=== PATIENT | female | born 1960 | race Two or more races ===

== ENCOUNTER 2024-04-20 08:11 | Inpatient (IN) | payer OTHER, MEDICAID ==
[~2024-04-20] VITALS: Ht 170.2 cm; Wt 72.9 kg
[2024-04-20 08:58] LABS: Basophils # (auto) 0 10 ^3/uL (0-0.2); Chloride 104 mmol/L (98-107); Eosinophils # (auto) 0 10 ^3/uL (0-0.8); Eosinophils % (auto) 0.1 % (0.0-7.0); Hemoglobin 20.1 g/dL (12.2-16.2); Lymphocytes # (auto) 1.8 10 ^3/uL (0.4-5.4); Potassium 3.6 mmol/L (3.5-5.1); Sodium 135 mmol/L (136-145)
[2024-04-20 08:59] LABS: Anion Gap 6 (5-15); Calcium 9.4 mg/dL (8.7-10.4); Carbon Dioxide 25 mmol/L (20-31)
[2024-04-20 09:00] LABS: Basophils % (auto) 0.5 % (0.0-2.0); Lymphocytes % (auto) 20.9 % (10.0-50.0); Mean Corpuscular Hemoglobin 31.2 pg (28.0-32.0); Mean Corpuscular Hgb Conc. 34.4 g/dL (32.0-36.0); Mean Corpuscular Volume 90.6 fL (80.0-100.0); Monocytes % (auto) 11.3 % (0.0-12.0); Neutrophils # (auto) 5.8 10 ^3/uL (1.6-8.6); Neutrophils % (auto) 67.2 % (37.0-80.0); Nucleated Red Blood Cells % 0.4 %; Platelet Count (auto) 306 10^3/uL (140-450); Red Blood Cells 6.44 10^6/uL (4.0-5.20); Red Cell Distribution Width 14.4 % (11.8-14.3); White Blood Cell 8.6 10^3/uL (4.4-10.8)
[2024-04-20 09:03] LABS: Hematocrit 58.3 % (36.0-46.0)
[2024-04-20 09:04] LABS: BUN/Creatinine Ratio 16.3 (10.0-20.0); Blood Urea Nitrogen 16 mg/dL (9-23); Glucose 128 mg/dL (74-106)
[2024-04-20 10:13] LABS: Urine Bacteria None Seen /hpf (None Seen)
[2024-04-20 10:32] LABS: Urine Blood Negative /uL (Negative); Urine Clarity Turbid (Clear); Urine Color Yellow (Yellow); Urine Hyaline Cast MANY /lpf (0 - 2); Urine Mucus FEW (None Seen); Urine Protein, UAD 1+ (Negative); Urine Specific Gravity 1.023 (1.001-1.035); Urine Urobilinogen Normal (Negative); Urine WBC 223 /hpf (0 - 5); Urine pH 5.5 (5.0-9.0)
--- NOTE | 2024-04-20 10:34 | ED.PDOC ---
History of Present Illness HPI Comments 63 y/o F, with a Hx of marijuana use, is BIBA for c/o abdominal pain, nausea, vomiting, and blood-streaked stools, today. Patient endorses on having pain, nausea, and vomiting symptoms for the past 6 days that were unprovoked and gradual, with additional onset of "dark-bloody" stools, today, that she noticed. Patient comments on recovering from a recent cold in addition to having no significant Hx aside from FMHx of CA. Patient denies having any weakness, diarrhea, constipation, hematemesis, or other associated symptoms or modifiers at this time. 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 Family History Family History: Family hx of Cancer Social History Smoker: Non-Smoker Alcohol: Denies ETOH Use Drugs: Marijuana Lives In: Home Constitutional: denies: chills, diaphoresis, fatigue, fever, malaise, sweats, weakness, others EENTM: denies: blurred vision, double vision, ear bleeding, ear discharge, ear drainage, ear pain, ear ringing, eye pain, eye redness, hearing loss, mouth pain, mouth swelling, nasal discharge, nose bleeding, nose congestion, nose pain, photophobia, tearing, throat pain, throat swelling, voice changes, others Respiratory: denies: cough, hemoptysis, orthopnea, SOB at rest, shortness of breath, SOB with excertion, stridor, wheezing, others Cardiovascular: denies: chest pain, dizzy spells, diaphoresis, Dyspnea on exertion, edema, irregular heart beat, left arm pain, lightheadedness, palpitations, PND, syncope, others Gastrointestinal: reports: abdominal pain, blood streaked bowels, nausea, vomiting; denies: abdomen distended, constipated, diarrhea, dysphagia, difficulty swallowing, hematemesis, melena, poor appetite, poor fluid intake, rectal bleeding, rectal pain, others Genitourinary: denies: abnormal vagina bleeding, burning, dyspareunia, dysuria, flank pain, frequency, hematuria, incontinence, pain, , vagina discharge, urgency, others Neurological: denies: dizziness, fainting, headache, left sided numbness, left sided weakness, numbness, paresthesia, pre-existing deficit, right sided numbness, right sided weakness, seizure, speech problems, tingling, tremors, weakness, others Musculoskeletal: denies: back pain, gout, joint pain, joint swelling, muscle pain, muscle stiffness, neck pain, others Integumetry: denies: bruises, change in color, change in hair/nails, dryness, laceration, lesions, lumps, rash, wounds, others Allergic/Immunocompromised: denies: Difficulty Healing, Frequent Infections, Hives, Itching, others Hematologic/Lymphatic: denies: anemia, blood clots, easy bleeding, easy bruising, swollen glands, others Endocrine: denies: excessive hunger, excessive sweating, excessive thirst, excessive urination, flushing, intolerance to cold, intolerance to heat, unexplained weight gain, unexplained weight loss, others Psychiatric: denies: anxiety, bipolar disorder, depression, hopeless, panic disorder, schizophrenia, sleepless, suicidal, others All Other Systems: Reviewed and Negative Physical Exam General Appearance: Moderate Distress HEENT: Normal ENT Inspection, Pharynx Normal, TMs Normal Neck: Full Range of Motion, Non-Tender, Normal, Normal Inspection Respiratory: Chest Non-Tender, Lungs Clear, No Accessory Muscle Use, No Respiratory Distress, Normal Breath Sounds Cardiovascular: No Edema, No JVD, No Murmur, No Gallop, Normal Peripheral Pulses, Regular Rate/Rhythm Breast Exam: Deferred Gastrointestinal: Soft Genitalia: Deferred Pelvic: Deferred Rectal: Deferred Extremities: No calf tenderness, Normal capillary refill, Normal inspection, Normal range of motion, Non-tender, No pedal edema Musculoskeletal : Apperance: Normal Neurologic: Alert, 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 Was a procedure done?: No Differential Dx Considerations may include: gastritis, gastroenteritis, appendicitis, diverticulitis, cholecystitis, cholelithiasis, nephrolithiasis, PUD, spoiled food, UTI, acute abdomen X-Ray, Labs, Meds, VS Vital Signs Date Time Temp Pulse Resp B/P (MAP) Pulse Ox O2 Delivery O2 Flow Rate FiO2 04/20/24 11:07 102 16 159/105 04/20/24 10:51 102 17 159/102 (121) 97 04/20/24 08:47 98.0 103 15 142/97 (112) 97 98.0 04/20/24 08:47 15 97 Room Air 04/20/24 08:14 98.4 95 18 173/113 (133) 97 Lab Test 04/20/24 08:38 04/20/24 08:20 Range/Units White Blood Count 8.6 4.4-10.8 10^3/uL Red Blood Count 6.44 H 4.0-5.20 10^6/uL Hemoglobin 20.1 H 12.2-16.2 g/dL Hematocrit 58.3 H 36.0-46.0 % Mean Corpuscular Volume 90.6 80.0-100.0 fL Mean Corpuscular Hemoglobin 31.2 28.0-32.0 pg Mean Corpuscular Hemoglobin Concent 34.4 32.0-36.0 g/dL Red Cell Distribution Width 14.4 H 11.8-14.3 % Platelet Count 306 140-450 10^3/uL Mean Platelet Volume 8.6 6.9-10.8 fL Neutrophils (%) (Auto) 67.2 37.0-80.0 % Lymphocytes (%) (Auto) 20.9 10.0-50.0 % Monocytes (%) (Auto) 11.3 0.0-12.0 % Eosinophils (%) (Auto) 0.1 0.0-7.0 % Basophils (%) (Auto) 0.5 0.0-2.0 % Neutrophils # (Auto) 5.8 1.6-8.6 10 ^3/uL Lymphocytes # (Auto) 1.8 0.4-5.4 10 ^3/uL Monocytes # (Auto) 1.0 0-1.3 10 ^3/uL Eosinophils # (Auto) 0 0-0.8 10 ^3/uL Basophils # (Auto) 0 0-0.2 10 ^3/uL Nucleated Red Blood Cells 0.4 % Sodium Level 135 L 136-145 mmol/L Potassium Level 3.6 3.5-5.1 mmol/L Chloride Level 104 98-107 mmol/L Carbon Dioxide Level 25 20-31 mmol/L Anion Gap 6 5-15 Blood Urea Nitrogen 16 9-23 mg/dL Creatinine 0.98 0.550-1.02 mg/dL Glomerular Filtration Rate Calc 64 >90 mL/min BUN/Creatinine Ratio 16.3 10.0-20.0 Serum Glucose 128 H 74-106 mg/dL Calcium Level 9.4 8.7-10.4 mg/dL Urine Color Yellow Yellow Urine Clarity Turbid H Clear Urine pH 5.5 5.0-9.0 Urine Specific [place] 1.023 1.001-1.035 Urine Protein 1+ H Negative Urine Ketones Negative Negative Urine Blood Negative Negative /uL Urine Nitrite Negative Negative Urine Bilirubin Negative Negative Urine Urobilinogen Normal Negative mg/dL Urine Leukocyte Esterase 3+ Negative /uL Urine RBC 13 0 - 4 /hpf Urine WBC 223 0 - 5 /hpf Urine Squamous Epithelial Cells Few <5 /hpf Urine Bacteria None seen None Seen /hpf Urine Hyaline Casts Many 0 - 2 /lpf Urine Mucus Few None Seen Urine Glucose Normal Normal mg/dL Current Medications Medications (Trade) Dose Ordered Sig/Dheeraj Route Start Time Stop Time Status Last Admin Ondansetron HCl (Zofran) 4 mg ONCE ONCE IV 04/20/24 10:30 04/20/24 10:31 DC 04/20/24 11:07 Sodium Chloride 1,000 ml @ 1,000 mls/hr Q1H ONCE IVB 04/20/24 10:30 04/20/24 11:29 DC 04/20/24 10:58 Morphine Sulfate 4 mg ONCE ONCE IV 04/20/24 10:30 04/20/24 10:31 DC 04/20/24 11:07 Ceftriaxone Sodium 50 ml @ 100 mls/hr ONCE ONCE IV 04/20/24 11:15 04/20/24 11:44 DC 04/20/24 11:[address] [address] Ph: [phone] DIAGNOSTIC IMAGING Diagnostic Imaging Report : [id number] Signed PATIENT: ALLIE TAVERAS ACCT: [id number] UNIT: [id number] : 1960 LOC: ER ROOM / BED: / AGE / SEX: 63 / F ADM STATUS: REG ER SERVICE 1029 ORDERING PHYSICIAN: RAYMOND PERRY MD PROCEDURE(s): ABPL - CT AB PEL WO CON-NO ORAL OR IV REASON: colitis ORDER NUMBER(s): [id number], ACCESSION NUMBER(s): [id number] Exam: CT CT AB PEL WO CON-NO ORAL OR IV History: colitis Comparison Study: None Technique: Multidetector spiral CT of the abdomen and pelvis was performed from lung bases to pubic symphysis. Imaging was performed without IV contrast. Axial, coronal and sagittal multiplanar reformats were obtained from the axial data set by the technologist. Radiation dose : Abdomen/Pelvis: CTDIvol 7 mGy, DLP 382 mGy*cm. Findings: Evaluation of solid organs is limited due to lack of intravenous contrast use. Lung Bases: There is mild ground-glass opacity and nodularity in the left lung base. Liver: The liver is normal in size. No focal lesions. Gallbladder and biliary Tree: Cholelithiasis noted without secondary findings of cholecystitis or biliary obstruction. Spleen: Unremarkable Pancreas: The pancreas is grossly normal in appearance. Adrenal Glands: Unremarkable Kidneys: Left renal cyst. No hydronephrosis or nephrolithiasis. Bladder: Grossly unremarkable for degree of distention. Bowel: The stomach is grossly normal in appearance. Small bowel and colon are normal in caliber and distribution. Normal appendix is visualized in the right lower quadrant without findings of appendicitis. Ascites: Absent Lymphadenopathy: No mesenteric, retroperitoneal or periportal lymphadenopathy. Abdominal wall and Mesentery: Unremarkable. Vasculature: The visualized abdominal aorta is normal in size and caliber. There is atherosclerotic calcification of the aorta and its branches. Evaluation of abdominal and pelvic vessels is limited due to lack of intravenous contrast. Pelvic Organs: Unremarkable Musculoskeletal: No aggressive focal bony lesions, acute fractures or dislocation. IMPRESSION: 1. No acute abdominal or pelvic findings. Cholelithiasis. Left renal cyst. Ground-glass and nodular opacities in the left lung base could be infectious / inflammatory. Recommend dedicated chest CT. Radiation optimization: All CT scans at this facility use at least one of these dose optimization techniques: Automated exposure control mA and/or kV adjustment per patient size (includes targeted exams where dose is matched to clinical indication) or iterative reconstruction. HS:Y ATED BY: CLYDE TORO MD DICTATED DATE/TIME: 04/20/24 1059 SIGNED BY: CLYDE TORO MD SIGNED DATE/TIME: 04/20/24 1059 CC: Patient alert. Complaining of abdominal pain. Does use marijuana. Vitals stable. Blood sugar slightly elevated. Urinalysis shows severe infection. Hemoglobin elevated. Hemo concentration. Dehydration. She continues to have abdominal pain. Establish intravenous access. Was given fluids pain CT scan of the abdomen reviewed does show gallstones along with pneumonia in the lower cuts of the lung. Was given Rocephin. Was given azithromycin. Reviewed her history. Explained to the patient. Continue cardiac monitoring. Time of 1ST Reevaluation: 08:30 Reevaluation 1ST: Unchanged Patient Education/Counseling: Diagnosis, Treatment Family Education/Counseling: No Family Present Departure 1 Departure Time of Disposition: 11:07 Impression: Primary Impression: Sepsis due to urinary tract infection Additional Impressions: Dehydration Diabetes mellitus, new onset Gallstones Pneumonia Qualified Codes: J18.9 - Pneumonia, unspecified organism Disposition: ADMITTED INPATIENT Admit to: Med Surg Condition: Guarded Critical Care Note Critical Care Time?: Yes (45 min-critical care time only) Stability Stability form required: No Heart Score Heart Score: Heart Score Response (Comments) Value History N/A 0 EKG N/A 0 Age N/A 0 Risk Factors N/A 0 Troponin N/A 0 Total 0 I personally scribed for RAYMOND PERRY MD ([email or web address]) on 04/20/24 at 10:34. Electronically submitted by Armand Burns ([email or web address]). I personally scribed for RAYMOND PERRY MD ([email or web address]) on 04/20/24 at 11:54. Electronically submitted by Armand Burns ([email or web address]). RAYMOND PERRY MD Apr 20, 2024 10:34
[2024-04-20] MEDS: SODIUM CHLORIDE 0.9% 1,000 ML IV ONE (10:53)
[2024-04-20] MEDS: SODIUM CHLORIDE 0.9% 1,000 ML IVB ONE (10:58)
--- NOTE | 2024-04-20 11:01 | DVH ---
Exam: CT CT AB PEL WO CON-NO ORAL OR IV History: colitis Comparison Study: None Technique: Multidetector spiral CT of the abdomen and pelvis was performed from lung bases to pubic symphysis. Imaging was performed without IV contrast. Axial, coronal and sagittal multiplanar reform ats were obtained from the axial data set by the technologist. Radiation dose : Abdomen/Pelvis: CTDIvol 7 mGy, DLP 382 mGy*cm. Findings: Evaluation of solid organs is limited due to lack of intravenous contrast use. Lung Bases: There is mild ground-glass opacity and nodularity in the left lung base. Liver: The liver is normal in size. No focal lesions. Gallbladder and biliary Tree: Cholelithiasis noted without secondary findings of cholecystitis or marcial iary obstruction. Spleen: Unremarkable Pancreas: The pancreas is grossly normal in appearance. Adrenal Glands: Unremarkable Kidneys: Left renal cyst. No hydronephrosis or nephrolithiasis. Bladder: Grossly unremarkable for degree of distention. Bowel: The stomach is grossly normal in appearance. Small bowel and colon are normal in caliber and d istribution. Normal appendix is visualized in the right lower quadrant without findings of appendici tis. Ascites: Absent Lymphadenopathy: No mesenteric, retroperitoneal or periportal lymphadenopathy. Abdominal wall and Mesentery: Unremarkable. Vasculature: The visualized abdominal aorta is normal in size and caliber. There is atherosclerotic calcification of the aorta and its branches. Evaluation of abdominal and pelvic vessels is limited d ue to lack of intravenous contrast. Pelvic Organs: Unremarkable Musculoskeletal: No aggressive focal bony lesions, acute fractures or dislocation. IMPRESSION: 1. No acute abdominal or pelvic findings. Cholelithiasis. Left renal cyst. Ground-glass and nodular opacities in the left lung base could be infectious / inflammatory. Recommend dedicated chest CT. Radiation optimization: All CT scans at this facility use at least one of these dose optimization eliz hniques: Automated exposure control mA and/or kV adjustment per patient size (includes targeted exams where dose is matched to clinical indication) or iterative reconstruction. HS:Y
[2024-04-20] MEDS: ONDANSETRON HCL 4 MG/2 ML VIAL IV ONE (11:07)
[2024-04-20] MEDS: MORPHINE SULFATE 4 MG/ML SYR/VIAL IV ONE (11:07)
[2024-04-20] MEDS: cefTRIAXone 1GM/50ML D5W 50 ML IV ONE (11:16)
[2024-04-20] MEDS: AZITHROMYCIN 500MG/ 250ML 250 ML IV ONE (12:59)
[2024-04-20 13:58] LABS: Albumin 4.6 g/dL (3.2-4.8); Bilirubin, Direct 0.1 mg/dL (<0.3); Bilirubin, Total 0.3 mg/dL (0.2-1.0)
[2024-04-20] MEDS ORDERED: ONDANSETRON HCL 4 MG/2 ML VIAL IV PRN (14:15)
[2024-04-20] MEDS ORDERED: MORPHINE SULFATE INJ 2 MG/ml SYRG IV PRN (14:15)
[2024-04-20] MEDS ORDERED: hydrALAZINE HCL 20 MG/ML VL IV PRN (15:30)
--- NOTE | 2024-04-20 15:30 | DVHHP2 ---
History of Present Illness Reason for Visit: Abdominal pain History of Present Illness 63-year-old female brought in by ambulance with complaint of abdominal pain, nausea, vomiting and per ED notes blood-streaked stools. Patient states she has been having abdominal pain for 6 days, then she started having dark bloody stools today per ED notes. After discussing with patient she states she did not have any bloody stools. Patient states she had a recent cold, with no significant medical history. Patient notes has family history of colon and ovarian cancer. Patient denies chest pain, headache, dizziness, diaphoresis, shortness of breath, vomiting, fever, or chills endorsed by the patient. Patient was admitted for further evaluation medical management. Past Medical History Patient denies Past Surgical History Patient denies Family History Family history of mother having colon cancer, and sister having ovarian cancer Smoke: No ALCOHOL: heavy (Patient states daily she drinks 2-4 beers) Drugs: Marijuana Lives: with Family Review of Systems Constitutional: No: Fever, Chills, Sweats, Weakness, Malaise, Other Eyes: No: Pain, Vision change, Conjunctivae inflammation, Eyelid inflammation, Other, Redness ENT: No: Ear pain, Ear discharge, Nose pain, Nose discharge, Nose congestion, Mouth pain, Mouth swelling, Throat pain, Throat swelling, Other Respiratory: No: Cough, Dry, Shortness of breath, SOB with excertion, Wheezing, Hemoptysis, Pleuritic Pain, Sputum, Wheezing, Other Cardiovascular: No: Chest Pain, Palpitations, Orthopnea, Paroxysmal Noc. Dyspnea, Edema, Lt Headedness, Other Gastrointestinal: Nausea, Abdominal Pain; No: Vomiting, Diarrhea, Constipation, Melena, Hematochezia, Other Genitourinary: No Dysuria, No Frequency, No Incontinence, No Hematuria, No Retention, No Other Musculoskeletal: No: other, neck pain, shoulder pain, arm pain, back pain, hand pain, leg pain, foot pain Skin: No: Rash, Lesions, Jaundice, Bruising, Other Neurological: No: Weakness, Numbness, Incoordination, Change in speech, Confusion, Seizures, Other Allergies: Coded Allergies: Codeine (Verified Allergy, Unknown, 12/11/13) Medications Current Medications Medications Dose Ordered Sig/Dheeraj Route Start Time Stop Time Status Last Admin Dose Admin Ondansetron HCl 4 mg Q4HP PRN IV 04/20/24 14:15 Morphine Sulfate 2 mg Q4HPRN PRN IV 04/20/24 14:15 Ceftriaxone Sodium 50 ml @ 100 mls/hr DAILY@09 IV 04/21/24 09:00 Pantoprazole Sodium 40 mg DAILY IV 04/20/24 14:15 Azithromycin 250 ml @ 125 mls/hr DAILY IV 04/21/24 10:00 Future Hold Exam Vital Signs Vital Signs Date Time Temp Pulse Resp B/P (MAP) Pulse Ox O2 Delivery O2 Flow Rate FiO2 04/20/24 14:10 93 16 152/98 04/20/24 14:10 98 04/20/24 08:47 98.0 98.0 04/20/24 08:47 Room Air General Appearance: Alert, Oriented X3, Cooperative, No acute distress HEENT: Atraumatic, PERRLA, Mucous membr. moist/pink Respiratory: Clear to auscultation, Normal air movement Cardiovascular: Regular rate, Normal S1, Normal S2, No murmurs Abdominal: Normal bowel sounds, Soft, No tenderness, No hepatospenomegaly, No masses Extremities: No clubbing, No cyanosis, No edema, Normal pulses, No tenderness/swelling Skin: No rashes, No breakdown, No significant lesion Neuro: Normal gait, Normal speech, Strength at 5/5 X4 ext, Normal tone, Sensation intact, Cranial nerves 3-12 NL, Reflexes 2+ Psych/Mental Status: Mental status NL, Mood NL Labs/Xrays Labs, imaging and ED notes reviewed Labs Test 04/20/24 08:38 04/20/24 08:20 Range/Units White Blood Count 8.6 4.4-10.8 10^3/uL Red Blood Count 6.44 H 4.0-5.20 10^6/uL Hemoglobin 20.1 H 12.2-16.2 g/dL Hematocrit 58.3 H 36.0-46.0 % Mean Corpuscular Volume 90.6 80.0-100.0 fL Mean Corpuscular Hemoglobin 31.2 28.0-32.0 pg Mean Corpuscular Hemoglobin Concent 34.4 32.0-36.0 g/dL Red Cell Distribution Width 14.4 H 11.8-14.3 % Platelet Count 306 140-450 10^3/uL Mean Platelet Volume 8.6 6.9-10.8 fL Neutrophils (%) (Auto) 67.2 37.0-80.0 % Lymphocytes (%) (Auto) 20.9 10.0-50.0 % Monocytes (%) (Auto) 11.3 0.0-12.0 % Eosinophils (%) (Auto) 0.1 0.0-7.0 % Basophils (%) (Auto) 0.5 0.0-2.0 % Neutrophils # (Auto) 5.8 1.6-8.6 10 ^3/uL Lymphocytes # (Auto) 1.8 0.4-5.4 10 ^3/uL Monocytes # (Auto) 1.0 0-1.3 10 ^3/uL Eosinophils # (Auto) 0 0-0.8 10 ^3/uL Basophils # (Auto) 0 0-0.2 10 ^3/uL Nucleated Red Blood Cells 0.4 % Sodium Level 135 L 136-145 mmol/L Potassium Level 3.6 3.5-5.1 mmol/L Chloride Level 104 98-107 mmol/L Carbon Dioxide Level 25 20-31 mmol/L Anion Gap 6 5-15 Blood Urea Nitrogen 16 9-23 mg/dL Creatinine 0.98 0.550-1.02 mg/dL Glomerular Filtration Rate Calc 64 >90 mL/min BUN/Creatinine Ratio 16.3 10.0-20.0 Serum Glucose 128 H 74-106 mg/dL Calcium Level 9.4 8.7-10.4 mg/dL Total Bilirubin 0.3 0.2-1.0 mg/dL Direct Bilirubin 0.1 <0.3 mg/dL Aspartate Amino Transferase (AST) 28 13-40 U/L Alanine Aminotransferase (ALT) 39 7-40 U/L Alkaline Phosphatase 83 46-116 U/L Total Protein 8.0 5.7-8.2 g/dL Albumin 4.6 3.2-4.8 g/dL Lipase 50 12-53 U/L Urine Color Yellow Yellow Urine Clarity Turbid H Clear Urine pH 5.5 5.0-9.0 Urine Specific [place] 1.023 1.001-1.035 Urine Protein 1+ H Negative Urine Ketones Negative Negative Urine Blood Negative Negative /uL Urine Nitrite Negative Negative Urine Bilirubin Negative Negative Urine Urobilinogen Normal Negative mg/dL Urine Leukocyte Esterase 3+ Negative /uL Urine RBC 13 0 - 4 /hpf Urine WBC 223 0 - 5 /hpf Urine Squamous Epithelial Cells Few <5 /hpf Urine Bacteria None seen None Seen /hpf Urine Hyaline Casts Many 0 - 2 /lpf Urine Mucus Few None Seen Urine Glucose Normal Normal mg/dL Assessment/Plan Assessment/Plan Acute abdominal pain Admit to medical/surgical CT abdomen pelvis showed cholelithiasis, otherwise no acute abdominal or pelvic findings. Gallbladder ultrasound pending- may need surgical consult depending on findings Plan medications p.r.n. Zofran p.r.n. nausea Hypertensive urgency Possibly caused by patient's pain Control pain Hydralazine p.r.n. systolic blood pressure greater than 150 mmHg Ground-glass and nodular opacities, left lung base Incidental finding. Infectious/inflammatory Chest CT pending Started on prophylactic IV antibiotics FEN/PPX GI prophylaxis started-Protonix VTE prophylaxis not indicated Clear liquid diet Plan discussed with: Patient My Orders Orders - RANDY YA Procedure Category Date Status Time Admit ADMIT 04/20/24 Transmitted 14:03 Code Status CODE 04/20/24 Transmitted 14:03 Vital Signs [facility] 04/20/24 In Process 14:03 Review Orders With [facility] 04/20/24 In Process Adm. 14:03 Up Ad Liliana [facility] 04/20/24 In Process 14:03 Notify Of Changes [facility] 04/20/24 In Process From Base 14:03 Advance Directive [facility] 04/20/24 In Process 14:03 Basic Metabolic Panel LAB 04/21/24 Verified 04:00 Complete Blood Count LAB 04/21/24 Verified 04:00 Patient Condition ORDERS 04/20/24 Transmitted 14:03 Allergies [facility] 04/20/24 In Process 14:03 Ondansetron Hcl PHA 04/20/24 In Process (Zofran) 14:15 Morphine Sulfate PHA 04/20/24 In Process Injection 14:15 Ceftriaxone 1gm/50ml PHA 04/21/24 In Process D5w (Rocephin) 09:00 Pantoprazole PHA 04/20/24 In Process (Protonix) 14:15 Azithromycin 500mg/ PHA 04/21/24 In Process 250ml (Zithromax 50 10:[address] 04/20/24 Logged 14:08 Date of Service: Apr 20, 2024 Billing Provider: RANDY YA Common Visit Codes: [id number] INP/OBS CARE (HIGH) RANDY YA VP [employer] ENGINEERING Apr 20, 2024 15:30
--- NOTE | 2024-04-20 15:54 | DVH ---
Procedure: CT CHEST WITHOUT CONTRAST Reason for study/Clinical History: Ground glass opacities on CT ab/pelv Comparison Study: None available at time of dictation. Exam Date: 04/20/2024 03:18 PM TECHNIQUE: Multidetector CT of the chest was performed from the lung apices to the upper abdomen with out the use of intravenous contract. Axial, coronal and sagittal multiplanar reformats were performed . Radiation Dose Information: CT Dose: CTDI volume is 10 mGy. Dose-length product is 371 mGy*cm The dose indicators for CT are the volume Computed Tomography (CT) Dose Index (CTDIvol) and the Dose Length Product (DLP), and are measured in units of mGy and mGy-cm, respectively. These indicators are not patient dose, but values generated from the CT scanner acquisition factors. The report includes radiation exposure data for exposures received during this examination. FINDINGS: Lower neck: Normal thyroid. Lungs: Patchy ground-glass opacities in the left lower lung. Heart/Vascular Structures: Normal heart size. No pericardial effusion. Lymph Nodes: Subcentimeter mediastinal lymph nodes. Pleura: No pleural effusion or significant pneumothorax. Musculoskeletal: No acute osseous abnormality. Soft tissues: Normal. Upper abdomen: Cholelithiasis. IMPRESSION: 1. Patchy ground-glass opacities in the left lower lung, likely infectious / inflammatory. Clinical correlation and continued follow-up is recommended. Radiation optimization: All CT scans at this facility use at least one of these dose optimization eliz hniques: automated exposure control mA and/or kV adjustment per patient size (includes targeted exam s where dose is matched to clinical indication) or iterative reconstruction. HS:Y
[2024-04-20] MEDS: PANTOPRAZOLE 40 MG/10 ML VIAL INJ IV SCH (15:59)
[2024-04-20 16:22] VITALS: PULSE 71; RESP 19; O2SAT 97
--- NOTE | 2024-04-20 16:41 | DVH ---
INDICATION: Pain. TECHNIQUE: Multiple real-time sonographic images of the abdomen were obtained. COMPARISON: None FINDINGS: Hepatic parenchyma is echogenic suggesting steatosis.. The liver measures 14.7 cm. No intr ahepatic biliary ductal dilatation is noted. The gallbladder wall measures 0.19 cm and is unremarkable. Mobile gallstones are noted in the gallb ladder.. The common duct measures 0.16 cm and is unremarkable. No pericholecystic fluid is noted. The right kidney measures 10.7 cm. No hydronephrosis. The pancreas is normal in. IMPRESSION: 1. Gallstones negative ultrasound Mauricio's sign. 2. 14.7 cm liver with findings suggesting steatosis.
[2024-04-20 16:46] VITALS: BP 160/96; PULSE 100; RESP 20; TEMP 98.3; O2SAT 95
[2024-04-20 16:51] VITALS: PULSE 100; RESP 16; O2SAT 95
[2024-04-20 21:00] VITALS: BP 124/69; PULSE 94; RESP 19; TEMP 99.8; O2SAT 94
[2024-04-21 05:00] VITALS: BP 109/56; PULSE 88; RESP 17; TEMP 99.3; O2SAT 97
[2024-04-21 06:16] LABS: Chloride 109 mmol/L (98-107); Potassium 3.8 mmol/L (3.5-5.1); Sodium 141 mmol/L (136-145)
[2024-04-21 06:17] LABS: Anion Gap 8 (5-15); Calcium 8.6 mg/dL (8.7-10.4); Carbon Dioxide 24 mmol/L (20-31)
[2024-04-21 06:19] LABS: Basophils # (auto) 0 10 ^3/uL (0-0.2); Basophils % (auto) 0.5 % (0.0-2.0); Eosinophils # (auto) 0 10 ^3/uL (0-0.8); Eosinophils % (auto) 0.2 % (0.0-7.0); Hemoglobin 16.1 g/dL (12.2-16.2); Lymphocytes # (auto) 1.9 10 ^3/uL (0.4-5.4); Lymphocytes % (auto) 31.5 % (10.0-50.0); Mean Corpuscular Hemoglobin 30.3 pg (28.0-32.0); Mean Corpuscular Hgb Conc. 33.5 g/dL (32.0-36.0); Mean Corpuscular Volume 90.2 fL (80.0-100.0); Monocytes # (auto) 0.9 10 ^3/uL (0-1.3); Monocytes % (auto) 15.9 % (0.0-12.0); Neutrophils # (auto) 3.1 10 ^3/uL (1.6-8.6); Neutrophils % (auto) 51.9 % (37.0-80.0); Nucleated Red Blood Cells % 0.3 %; Platelet Count (auto) 256 10^3/uL (140-450); Red Blood Cells 5.32 10^6/uL (4.0-5.20); Red Cell Distribution Width 14.2 % (11.8-14.3); White Blood Cell 5.9 10^3/uL (4.4-10.8)
[2024-04-21 06:22] LABS: BUN/Creatinine Ratio 15.6 (10.0-20.0); Blood Urea Nitrogen 10 mg/dL (9-23); Glucose 93 mg/dL (74-106)
--- NOTE | 2024-04-21 07:56 | DVHINCON2 ---
Date of service: Apr 21, 2024 Family History: Diabetes mellitus G8 FATHER FH: cancer G8 MOTHER Allergies: Coded Allergies: Codeine (Verified Allergy, Unknown, 12/11/13) Home Meds No Active Prescriptions or Reported Meds Current Medications Current Medications Medications (Trade) Dose Ordered Sig/Dheeraj Route PRN Reason Start Time Stop Time Status Last Admin Ondansetron HCl (Zofran) 4 mg Q4HP PRN IV NAUSEA / VOMITING 04/20/24 14:15 Morphine Sulfate 2 mg Q4HPRN PRN IV SEVERE PAIN (7-10 PAIN SCALE) 04/20/24 14:15 Ceftriaxone Sodium 50 ml @ 100 mls/hr DAILY@09 IV 04/21/24 09:00 Pantoprazole Sodium (Protonix) 40 mg DAILY IV 04/20/24 14:15 04/20/24 15:59 Azithromycin 250 ml @ 125 mls/hr DAILY IV 04/21/24 10:00 Future Hold Hydralazine HCl (Apresoline Injection) 10 mg Q6HP PRN IV SBP>150 04/20/24 15:30 Vital Signs Vital Signs Date Time Temp Pulse Resp B/P (MAP) Pulse Ox O2 Delivery O2 Flow Rate FiO2 04/21/24 05:00 99.3 88 17 109/56 (73) 97 99.3 04/20/24 20:00 Room Air* 0 21 Labs/Diagnostic Data Labs Test 04/21/24 05:32 04/20/24 08:38 04/20/24 08:20 Range/Units White Blood Count 5.9 # 4.4-10.8 10^3/uL Red Blood Count 5.32 H 4.0-5.20 10^6/uL Hemoglobin 16.1 # 12.2-16.2 g/dL Hematocrit 48.0 #H 36.0-46.0 % Mean Corpuscular Volume 90.2 80.0-100.0 fL Mean Corpuscular Hemoglobin 30.3 28.0-32.0 pg Mean Corpuscular Hemoglobin Concent 33.5 32.0-36.0 g/dL Red Cell Distribution Width 14.2 11.8-14.3 % Platelet Count 256 140-450 10^3/uL Mean Platelet Volume 8.5 6.9-10.8 fL Neutrophils (%) (Auto) 51.9 37.0-80.0 % Lymphocytes (%) (Auto) 31.5 10.0-50.0 % Monocytes (%) (Auto) 15.9 H 0.0-12.0 % Eosinophils (%) (Auto) 0.2 0.0-7.0 % Basophils (%) (Auto) 0.5 0.0-2.0 % Neutrophils # (Auto) 3.1 1.6-8.6 10 ^3/uL Lymphocytes # (Auto) 1.9 0.4-5.4 10 ^3/uL Monocytes # (Auto) 0.9 0-1.3 10 ^3/uL Eosinophils # (Auto) 0 0-0.8 10 ^3/uL Basophils # (Auto) 0 0-0.2 10 ^3/uL Nucleated Red Blood Cells 0.3 % Sodium Level 141 # 136-145 mmol/L Potassium Level 3.8 3.5-5.1 mmol/L Chloride Level 109 H 98-107 mmol/L Carbon Dioxide Level 24 20-31 mmol/L Anion Gap 8 5-15 Blood Urea Nitrogen 10 9-23 mg/dL Creatinine 0.64 # 0.550-1.02 mg/dL Glomerular Filtration Rate Calc 98 >90 mL/min BUN/Creatinine Ratio 15.6 10.0-20.0 Serum Glucose 93 74-106 mg/dL Calcium Level 8.6 L 8.7-10.4 mg/dL Total Bilirubin 0.3 0.2-1.0 mg/dL Direct Bilirubin 0.1 <0.3 mg/dL Aspartate Amino Transferase (AST) 28 13-40 U/L Alanine Aminotransferase (ALT) 39 7-40 U/L Alkaline Phosphatase 83 46-116 U/L Total Protein 8.0 5.7-8.2 g/dL Albumin 4.6 3.2-4.8 g/dL Lipase 50 12-53 U/L Urine Color Yellow Yellow Urine Clarity Turbid H Clear Urine pH 5.5 5.0-9.[address] 1.023 1.001-1.035 Urine Protein 1+ H Negative Urine Ketones Negative Negative Urine Blood Negative Negative /uL Urine Nitrite Negative Negative Urine Bilirubin Negative Negative Urine Urobilinogen Normal Negative mg/dL Urine Leukocyte Esterase 3+ Negative /uL Urine RBC 13 0 - 4 /hpf Urine WBC 223 0 - 5 /hpf Urine Squamous Epithelial Cells Few <5 /hpf Urine Bacteria None seen None Seen /hpf Urine Hyaline Casts Many 0 - 2 /lpf Urine Mucus Few None Seen Urine Glucose Normal Normal mg/dL Assessment please recall after patient evaluated for the etiology of her bloody stools (there is family history of colon and ovarian cancer) gallstones are not responsible for blood in the stool. Plan discussed with: Other JARAD SANDHU MD Apr 21, 2024 07:55
[2024-04-21 08:00] VITALS: PULSE 97; RESP 18; O2SAT 100
[2024-04-21 09:22] VITALS: BP 116/62; PULSE 97; RESP 18; TEMP 98.1; O2SAT 97
[2024-04-21] MEDS ORDERED: AZITHROMYCIN 500MG/ 250ML 250 ML IV SCH (10:00)
[2024-04-21] MEDS: cefTRIAXone 1GM/50ML D5W 50 ML IV SCH (10:38)
[2024-04-21 13:00] VITALS: BP 132/78; PULSE 69; RESP 20; TEMP 98; O2SAT 100
[2024-04-21] MEDS ORDERED: METR-344 PO (13:22)
--- NOTE | 2024-04-21 13:29 | DVHDS2 ---
Discharge Summary Date of Admission Apr 20, 2024 at 14:03 Date of Discharge: Apr 21, 2024 Labs/Diagnostic Data: Laboratory Results Test 04/21/24 05:32 04/20/24 08:38 04/20/24 08:20 White Blood Count 5.9 10^3/uL (4.4-10.8) Red Blood Count 5.32 10^6/uL (4.0-5.20) Hemoglobin 16.1 g/dL (12.2-16.2) Hematocrit 48.0 % (36.0-46.0) Mean Corpuscular Volume 90.2 fL (80.0-100.0) Mean Corpuscular Hemoglobin 30.3 pg (28.0-32.0) Mean Corpuscular Hemoglobin Concent 33.5 g/dL (32.0-36.0) Red Cell Distribution Width 14.2 % (11.8-14.3) Platelet Count 256 10^3/uL (140-450) Mean Platelet Volume 8.5 fL (6.9-10.8) Neutrophils (%) (Auto) 51.9 % (37.0-80.0) Lymphocytes (%) (Auto) 31.5 % (10.0-50.0) Monocytes (%) (Auto) 15.9 % (0.0-12.0) Eosinophils (%) (Auto) 0.2 % (0.0-7.0) Basophils (%) (Auto) 0.5 % (0.0-2.0) Neutrophils # (Auto) 3.1 10 ^3/uL (1.6-8.6) Lymphocytes # (Auto) 1.9 10 ^3/uL (0.4-5.4) Monocytes # (Auto) 0.9 10 ^3/uL (0-1.3) Eosinophils # (Auto) 0 10 ^3/uL (0-0.8) Basophils # (Auto) 0 10 ^3/uL (0-0.2) Nucleated Red Blood Cells 0.3 % Sodium Level 141 mmol/L (136-145) Potassium Level 3.8 mmol/L (3.5-5.1) Chloride Level 109 mmol/L (98-107) Carbon Dioxide Level 24 mmol/L (20-31) Anion Gap 8 (5-15) Blood Urea Nitrogen 10 mg/dL (9-23) Creatinine 0.64 mg/dL (0.550-1.02) Glomerular Filtration Rate Calc 98 mL/min (>90) BUN/Creatinine Ratio 15.6 (10.0-20.0) Serum Glucose 93 mg/dL (74-106) Calcium Level 8.6 mg/dL (8.7-10.4) Total Bilirubin 0.3 mg/dL (0.2-1.0) Direct Bilirubin 0.1 mg/dL (<0.3) Aspartate Amino Transferase (AST) 28 U/L (13-40) Alanine Aminotransferase (ALT) 39 U/L (7-40) Alkaline Phosphatase 83 U/L (46-116) Total Protein 8.0 g/dL (5.7-8.2) Albumin 4.6 g/dL (3.2-4.8) Lipase 50 U/L (12-53) Urine Color Yellow (Yellow) Urine Clarity Turbid (Clear) Urine pH 5.5 (5.0-9.0) Urine Specific [place] 1.023 (1.001-1.035) Urine Protein 1+ (Negative) Urine Ketones Negative (Negative) Urine Blood Negative /uL (Negative) Urine Nitrite Negative (Negative) Urine Bilirubin Negative (Negative) Urine Urobilinogen Normal mg/dL (Negative) Urine Leukocyte Esterase 3+ /uL (Negative) Urine RBC 13 /hpf (0 - 4) Urine WBC 223 /hpf (0 - 5) Urine Squamous Epithelial Cells Few /hpf (<5) Urine Bacteria None seen /hpf (None Seen) Urine Hyaline Casts Many /lpf (0 - 2) Urine Mucus Few (None Seen) Urine Glucose Normal mg/dL (Normal) Other Laboratory Tests 04/21/24 05:32 Final Diagnosis/Problems List cholelithiasis Discharge Disposition: Home Discharge Instruct/Medications Diet: Cardiac 2g Na,low cholest Activity: No Restrictions, As Tolerated Discharge Statement: "Patient was advised to return to the ER or call 911 if any headaches, dizziness, shortness of breath, chest pain, abdominal pain, bleeding, fevers, or worsening of medical condition. Patient was counseled about treatment plan, medications, possible side effects, patientverbalized understanding. All questions were answered to the best of my ability. This discharge took greater then 30 minutes in planning, reviewing documentation, counseling the patient, and discussing with other team members." ASSESSMENT ASSESSMENT Assessment cholelithiasis Date of Service: Apr 21, 2024 Billing Provider: ADINA MASTERSON DO Common Visit Codes: 04836-IBF/OBS DISCH DAY >30min ADINA MASTERSON DO Apr 21, 2024 13:28
[2024-04-21 13:51] VITALS: BP 132/78; PULSE 69; RESP 18; TEMP 98.6; O2SAT 100
== END 2024-04-21 14:05 | disposition home or self-care (01) | DRG 871 ==
LOC: ER 08:11 → EDBD 08:11 → OVERFLOW 14:03 → TELE-E-ADS 16:58
PROVIDERS: ADMIT Registered Nurse General Practice; ATTEND Internal Medicine
DX: A41.50 Gram-negative sepsis, unspecified (principal); J15.69 Pneumonia due to other Gram-negative bacteria; J15.9 Unspecified bacterial pneumonia; N39.0 Urinary tract infection, site not specified; I16.0 Hypertensive urgency; K80.20 Calculus of gallbladder without cholecystitis without obstruction; E86.0 Dehydration; E11.9 Type 2 diabetes mellitus without complications; Z83.3 Family history of diabetes mellitus; Z80.41 Family history of malignant neoplasm of ovary; Z80.0 Family history of malignant neoplasm of digestive organs; Z88.5 Allergy status to narcotic agent; Z79.4 Long term (current) use of insulin; Z79.899 Other long term (current) drug therapy
CPT/HCPCS: 36415; 71250; 74176; 76705; 80048; 80076; 81001; 83690; 85025; 96374; 96375; 99291; G0378; J2405; J2470